=== PATIENT | male | born 1985 | race Two or more races ===

== ENCOUNTER 2023-06-25 14:18 | Emergency (ER) | payer OTHER ==
[~2023-06-25] VITALS: Ht 162.6 cm; Wt 102.1 kg
[2023-06-25 18:45] LABS: HEMATOCRIT 42.8 % (39.0-48.0); HEMOGLOBIN 13.9 g/dL (13-16.00); MEAN CELL VOLUME 87.5 fL (80.0-100.00); MEAN CORPUSCULAR HEMOGLOBIN 28.5 pg (27.00-32.0); MEAN CORPUSCULAR HGB CONC 32.5 g/dl (32.0-36.0); PLATELET COUNT 337 K/uL (150-450); RED BLOOD COUNT 4.89 M/uL (4.00-6.00); RED CELL DISTRIBUTION WIDTH 12.9 % (11.5-14.5)
== END 2023-06-25 19:51 | disposition home or self-care (01) ==
LOC: ER 14:18
PROVIDERS: General Practice
DX: M94.0 Chondrocostal junction syndrome [Tietze] (principal); G47.39 Other sleep apnea; I48.91 Unspecified atrial fibrillation